=== PATIENT | male | born 1975 | race Two or more races ===

== ENCOUNTER 2019-04-07 14:38 | Emergency (ER) | payer MEDICAID ==
[~2019-04-07] VITALS: Ht 167.6 cm; Wt 81.8 kg
[2019-04-07] MEDS ORDERED: SULFAMETHOX/TRIMETH DS 800-160 MG/TABLET PO ONE (15:15)
[2019-04-07] MEDS ORDERED: LORazepam 1 MG TABLET PO ONE (15:15)
[2019-04-07 15:43] VITALS: BP 137/82
== END 2019-04-07 16:50 | disposition home or self-care (01) ==
LOC: EMS 14:41
DX: L03.012 Cellulitis of left finger (principal); F19.10 Other psychoactive substance abuse, uncomplicated; I10 Essential (primary) hypertension; F17.210 Nicotine dependence, cigarettes, uncomplicated; F11.90 Opioid use, unspecified, uncomplicated; F15.90 Other stimulant use, unspecified, uncomplicated
CPT/HCPCS: 99406

== ENCOUNTER 2025-05-25 16:25 | Emergency (ER) | payer MEDICAID, OTHER ==
[~2025-05-25] VITALS: Ht 167.6 cm; Wt 87.6 kg
[2025-05-25 16:28] VITALS: TEMP 98.7
[2025-05-25] MEDS ORDERED: MIRT-89 PO (16:34)
[2025-05-25] MEDS ORDERED: ZIPR20CA38 PO (16:34)
[2025-05-25] MEDS ORDERED: BUSP5TAB20 PO (16:34)
[2025-05-25 17:10] LABS: PLATELET COUNT (AUTO) 222 K/uL (150-450); RED BLOOD CELL COUNT(AUTO) 4.33 MIL/uL (4.50-5.90); RED CELL DISTRIBUTION WIDTH 14.2 % (11.5-14.5); WHITE BLOOD COUNT (AUTO) 7.7 K/uL (4.5-11.0)
[2025-05-25 17:19] LABS: CALCIUM, TOTAL 9.1 mg/dL (8.8-10.5); CREATININE 0.80 mg/dL (0.60-1.30); GLOMERULAR FILTR. RATE CALC > 60 mL/min (>60); GLUCOSE,RANDOM 115 mg/dL (70-110); SODIUM SERUM 141 mmol/L (136-145); UREA NITROGEN, BLOOD 12 mg/dL (7-18)
[2025-05-25 17:29] LABS: TROPONIN I-HIGH SENSITIVITY 15 ng/L (<76)
[2025-05-25] MEDS ORDERED: AZIT250T9 PO (22:26)
[2025-05-25] MEDS: LIDOCAINE/PF 1% 2 ML VIAL IM ONE (22:38)
[2025-05-25] MEDS: CefTRIAXone SODIUM 1 GM/VIAL IM ONE (22:38)
[2025-05-25 22:54] LABS: TROPONIN I-HIGH SENSITIVITY 13 ng/L (<76)
[2025-05-26 04:42] VITALS: BP 139/88; PULSE 81; RESP 22; O2SAT 97
[2025-05-28] MEDS ORDERED: LEVO750T68 PO (11:22)
[2025-05-28] MEDS ORDERED: OXYC-38 PO (11:22)
[2025-05-28] MEDS ORDERED: PANT-31 PO (11:22)
== END 2025-05-26 05:46 | disposition home or self-care (01) ==
LOC: EMS 16:25
DX: R06.02 Shortness of breath (principal); R07.9 Chest pain, unspecified; R20.0 Anesthesia of skin; I10 Essential (primary) hypertension; F17.210 Nicotine dependence, cigarettes, uncomplicated; F15.90 Other stimulant use, unspecified, uncomplicated; F16.90 Hallucinogen use, unspecified, uncomplicated; F12.90 Cannabis use, unspecified, uncomplicated; Z79.899 Other long term (current) drug therapy
CPT/HCPCS: 99285; 71045; 80048; 83880; 84484; 85025; 85610; 85730; 36415; 93005; 96372; J0696; J1200; J1630; J3490